=== PATIENT | male | born 1985 | race Asian ===

== ENCOUNTER 2017-04-30 06:30 | Emergency (ER) | payer OTHER, SELFPAY ==
[~2017-04-30] VITALS: Ht 172.7 cm; Wt 102.3 kg
[2017-04-30 08:52] VITALS: BP 166/92
== END 2017-04-30 08:53 | disposition home or self-care (01) ==
LOC: M ED 06:30
DX: L60.0 Ingrowing nail (principal); Z83.49 Family history of other endocrine, nutritional and metabolic diseases